=== PATIENT | female | born 2005 | race Caucasian/White ===

== ENCOUNTER 2024-04-20 19:45 | Emergency (ER) | payer BC | END 2024-04-20 23:43 | disposition home or self-care (01) | LOC: CSHERS 19:45 | DX: S52.101A Unspecified fracture of upper end of right radius, initial encounter for closed fracture (principal); S01.81XA Laceration without foreign body of other part of head, initial encounter; V89.2XXA Person injured in unspecified motor-vehicle accident, traffic, initial encounter | CPT/HCPCS: 12011; 99283 ==

== ENCOUNTER 2024-04-25 19:50 | Emergency (ER) | payer BC | END 2024-04-25 21:10 | disposition home or self-care (01) | LOC: CSHERS 19:50 | DX: S01.111D Laceration without foreign body of right eyelid and periocular area, subsequent encounter (principal); X58.XXXD Exposure to other specified factors, subsequent encounter ==